=== PATIENT | female | born 1975 | race Caucasian/White ===

== ENCOUNTER 2016-09-23 03:57 | Emergency (ER) ==
[2016-09-23 04:16] VITALS: BP 112/70; TEMP 99.3; BMI 22.4
[2016-09-23 04:21] LABS: BILIRUBIN,URINE Negative (NEGATIVE); KETONES,URINE Negative (NEGATIVE); LEUKOCYTE ESTERASE ,URINE 2+ (NEGATIVE); NITRITE,URINE Negative (NEGATIVE); PROTEIN,URINE Negative (NEGATIVE); URINE, BLOOD Negative (NEGATIVE)
[2016-09-23 04:23] LABS: ADD URINE MICROSCOPIC YES; BACTERIA,URINE 2+ (NOT PRESENT)
[2016-09-23] MEDS ORDERED: SODIUM CHLORIDE 1,000 ML IV STA (04:24)
[2016-09-23 04:25] LABS: URINE PREGNANCY INTERNAL QC INTERNAL QC VALID
[2016-09-23 04:36] LABS: COCAIN SCREEN,URINE NEGATIVE (NEGATIVE)
[2016-09-23 04:51] LABS: BASOPHILS # (AUTO) 0.1 K/uL (0-0.2); BASOPHILS % (AUTO) 0.4 % (0.0-3.0); EOSINOPHILS % (AUTO) 0.2 % (0.0-7.0); HEMATOCRIT 41.3 % (37.0-47.0); HEMOGLOBIN 14.4 g/dl (12.0-16.0); IMMATURE GRANULOCYTE % (AUTO) 0.4 % (0.0-5.0); LYMPHOCYTES # (AUTO) 2.4 K/uL (0.60-3.4); MEAN CORPUSCULAR HEMOGLOBIN 31.3 pg (27.0-31.0); MEAN CORPUSCULAR HGB CONC 34.9 (31.8-35.4); MEAN CORPUSCULAR VOLUME 89.8 fl (81.0-99.0); MONOCYTES # (AUTO) 0.9 K/uL (0.4-2.0); MONOCYTES % (AUTO) 5.3 (0-10); NEUTROPHILS # (AUTO) 12.7 K/ul (2.0-6.9); NEUTROPHILS % (AUTO) 78.7; PLATELET COUNT 416 10^3/uL (140-440); WHITE BLOOD COUNT 16.07 K/ul (4.6-10.2)
[2016-09-23 05:12] LABS: ALBUMIN 4.4 g/dL (3.4-5.0); ALBUMIN/GLOBULIN RATIO 1.33; ANION GAP 16.2; BILIRUBIN,TOTAL 0.19 mg/dL (0.00-1.20); BUN/CREATININE RATIO 10.44; CALCIUM 8.9 mg/dL (8.2-10.2); CREATININE 0.67 mg/dL (0.60-1.30); POTASSIUM 4.2 mmol/L (3.5-5.10); TOTAL PROTEIN 7.7 g/dL (6.4-8.2)
[2016-09-23] MEDS ORDERED: LIDOCAINE 1 % AMP 5 ML (SUTURES) ONE (05:26)
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
== END 2016-09-23 07:34 | disposition home or self-care (01) ==
LOC: ED 03:57
DX: S01.81XA Laceration without foreign body of other part of head, initial encounter (principal); S80.212A Abrasion, left knee, initial encounter; S60.811A Abrasion of right wrist, initial encounter; S00.211A Abrasion of right eyelid and periocular area, initial encounter; S19.9XXA Unspecified injury of neck, initial encounter; N39.0 Urinary tract infection, site not specified; T14.8 Other injury of unspecified body region; V86.99XA Unspecified occupant of other special all-terrain or other off-road motor vehicle injured in nontraffic accident, initial encounter
CPT/HCPCS: 36415; 80053; 80306; 80307; 81001; 81025; 82150; 83690; 85025; 87086; 96360; 99283

== ENCOUNTER 2016-11-30 16:48 | Outpatient (CLI) | END 2016-11-30 16:49 | disposition home or self-care (01) | LOC: LAB 16:48 | PROVIDERS: ATTEND Physician Assistant | DX: Z20.2 Contact with and (suspected) exposure to infections with a predominantly sexual mode of transmission (principal) | CPT/HCPCS: 36415; 80074; 86592; 86695; 86696; 86701 ==